=== PATIENT | male | born 1965 | race Caucasian/White ===

== ENCOUNTER → 2021-07-27 | Outpatient (CLI) | payer BC ==
[~2021-07-27] MED LIST: CEPHALEXIN500 M1 PO; NO HOME MEDICATIONS; PRINIVIL5 MG PO
== END ==
LOC: COL.RAD 11:24 → COL.VAS 08-05 12:30
DX: I27.20 Pulmonary hypertension, unspecified (principal); I36.1 Nonrheumatic tricuspid (valve) insufficiency; I51.7 Cardiomegaly; J98.4 Other disorders of lung; M79.89 Other specified soft tissue disorders; Z86.718 Personal history of other venous thrombosis and embolism